=== PATIENT | male | born 1955 | race Caucasian/White ===

== ENCOUNTER 2016-10-25 10:44 | Emergency (ER) ==
[2016-10-25] MEDS ORDERED: ASPIRIN PO STA (10:54)
[2016-10-25 11:10] LABS: MANUAL DIFF NEEDED? NO
--- NOTE | 2016-10-25 11:18 | ED EKG INTERP ---
EKG Interpretation - EKG Time of EKG reading by physician:: 10:45 EKG Read and Signed by:: Joseph Rice EKG Interpretation (*Must complete 3 of following elements*): Normal Rate: 77 Rhythm: normal sinus rhythm Comments: normal ECG Attestation - Scribe Verification/Attestation Scribe:: Irma Pena Acting as Scribe for:: Joseph Rice Scribe documention review:: This chart was documented by a scribe and accurately reflects the service the provider performed and the decisions made by the provider.
--- NOTE | 2016-10-25 11:24 | EKG Report ---
Test Performed on : 10/25/2016 10:45:45 AM Test Reason : CHEST PAIN Blood Pressure : / mmHG Vent. Rate : 077 BPM Atrial Rate : 077 BPM P-R Int : 146 ms QRS Dur : 090 ms QT Int : 346 ms P-R-T Axes : 041 016 028 degrees QTc Int : 391 ms Normal sinus rhythm. Normal ECG No previous ECGs available Unconfirmed Result
[2016-10-25 11:30] LABS: AGAP 8; ALBUMIN 4.3 g/dL (3.5-5.0); ALKALINE PHOSPHATASE 43 U/L (32-122); BUN 16 mg/dL (8-22); CALCIUM 9.3 mg/dL (8.8-10.2); CHLORIDE 103 mmol/L (98-107); CK PROFILE 131 U/L (24-204); COSMO 274; GOT 21 U/L (10-34); GPT 29 U/L (10-44); MAGNESIUM 2.2 mg/dL (1.5-2.7); POTASSIUM 4.3 mmol/L (3.5-5.1); SODIUM 136 mmol/L (136-145); TCO2 25 mmol/L (25-35); TOTAL PROTEIN 6.9 g/dL (6.3-8.3)
[2016-10-25 11:46] LABS: INR 1.05 (0.86-1.15)
[2016-10-25 11:47] LABS: PTT PL 29.2 Seconds (22.6-43.9)
[2016-10-25 11:54] LABS: BASO% 0.6 % (0.0-0.8); EOS# 0.19 X1000 (0.0-0.7); EOS% 3.9 % (0.0-10.0); HEMATOCRIT 52.7 % (42.0-52.0); HEMOGLOBIN 18.1 g/dL (14.0-18.0); IMM GRAN# 0.01 X1000 (0.0-0.04); IMM GRAN% 0.2 % (0.0-0.5); LYMPH# 1.87 X1000 (1.2-3.4); LYMPH% 38.1 % (20.5-51.1); MCH 29.3 PG (27-31); MCHC 34.3 g/dL (33-37); MCV 85.3 FL (81-99); MONO# 0.55 X1000 (0.11-0.59); MONO% 11.2 % (1.7-9.3); MPV 10.8 FL (7.4-10.4); PLT 217 X1000 (130-400); RBC 6.18 XMIL (4.7-6.1)
--- NOTE | 2016-10-25 11:57 | Diag Imaging Result Document ---
PROCEDURE NAME: CHEST-2 VIEWS - 10/25/2016 TWO VIEWS OF THE CHEST: FINDINGS: There are calcified granulomatous nodes in the right hilum and granulomata in the right upper lobe. There is no evidence of acute cardiac or pulmonary disease. There are no previous studies. IMPRESSION: No acute disease.
--- NOTE | 2016-10-25 12:06 | PROVIDER DOCUMENTATION ---
HPI-Chest Pain - General Source: patient, family () - History of Present Illness-CP Location: reports: other (L side) Chest Pain Radiation: reports: no radiation Quality of Pain: reports: pressure Severity in ED: mild Onset/Duration: other (2 months) Timing: still present, intermittent Context/Activities at Onset: reports: light activity Modifying Factors: improves with: nothing Associated Symptoms: reports: denies symptoms Nitro Today/Relief: no nitro taken today Aspirin Treatment Today: 81 mg x 1, provided at home Prior Chest Pain/Cardiac Workup: reports: echocardiography, stress test Similar Symptoms Previously?: Yes Recently Seen Here or By Another Healthcare Provider: No <Irma Pena - Last Filed: 10/25/16 12:01> <Joseph Rice - Last Filed: 10/25/16 12:24> - General Chief Complaint: Chest Pain Stated Complaint: CHEST PAIN Time Seen by Provider: 10/25/16 11:26 Allergies/Adverse Reactions: Patient Allergies Allergy/AdvReac Type Severity Reaction Status Date / Time No Known Allergies Allergy Verified 10/25/16 10:53 Home Medications: Home Medication List Medication Instructions Recorded Confirmed Last Taken Type Esomeprazole [Nexium] 40 mg PO DIRECTED #90 capsule 10/25/16 Unknown Rx - History of Present Illness-CP Nature of Presenting Problem: Pt is 61 y/o M presents to the ED with L side chest pain. Pt states hx of chest pain intermittently since August. Pt states CP started constant Sunday. Pt states CP has lasted 12 hrs to 30 seconds. Pt denies symptoms with CP. Pt denies F and SOB. Pt states he walks daily and the CP does not come with walking. PT states having a tennis lesson and really worked during the lesson and still did not have chest pain. (Irma Pena) Review of Systems - Adult - REVIEW OF SYSTEMS - ADULT Constitutional: denies: chills, fever Eyes: denies: blurred vision, double vision Ears, Nose, Mouth & Throat: denies: ear pain, nose pain, throat pain Cardiovascular: reports: chest pain (L side). denies: heart murmur, irregular heart rate Respiratory: denies: cough, shortness of breath, wheezing Gastrointestinal: denies: abdominal pain, diarrhea, nausea, vomiting Genitourinary: denies: dysuria, hematuria Musculoskeletal: denies: bone pain, joint pain, neck pain Integumentary: denies: hives, itching Neurological: denies: dizziness/vertigo, headache/migraines Psychiatric: reports: no symptoms reported Endocrine: reports: no symptoms reported Hematologic/Lymphatic: reports: no symptoms reported Allergic/Immunologic: reports: no symptoms reported All Other Systems: Reviewed and Negative <Tere Penaomi - Last Filed: 10/25/16 12:01> Past History - Adult - PAST MEDICAL HISTORY-ADULT Review of Records: reports: Nursing Assessment Review, Medications Reviewed, Social history reviewed & non-contributory. Major Childhood Illnesses: reports: denies history Cardiovascular: reports: denies history Respiratory: reports: denies history Gastrointestinal: reports: GERD Obstetrical/Gynecological: reports: denies history Genitourinary: reports: denies history Musculoskeletal: reports: denies history Neurological: reports: denies history Endocrine/Immune: reports: denies history Other Conditions: reports: denies history - PRIOR SURGERIES/PROCEDURES Surgical/Procedure History: reports: tonsillectomy, back/neck (back ) - IMMUNIZATION STATUS Childhood Immunizations: See Nurse Assessment Flu Vaccine: See Nurse Assessment - FAMILY HISTORY Family History: reviewed, not pertinent - SOCIAL HISTORY Smoking: quit greater than 1 year, cigarettes Substance Use: alcohol Alcohol Use Frequency: occasionally Number of drinks per typical drinking period:: 2 drinks Living Situation: family <Tere Penaomi - Last Filed: 10/25/16 12:01> Physical Exam-General - PHYSICAL EXAM-ADULT Initial Vital Signs Reviewed: Yes - CONSTITUTIONAL General Appearance: appears well, alert, no apparent distress - EYES Eyes: PERRL/EOMI, pink conjunctivae, fundi clear, no AV nicking - HEAD, EARS, NOSE, MOUTH & THROAT HENMT: normocephalic/atraumatic, moist mucous membranes, normal ENT inspection, TMs normal, pharynx normal - NECK Neck: non-tender, full range of motion, supple, normal inspection - RESPIRATORY Respiratory: chest non-tender, lungs clear, normal breath sounds, no pleuratic chest pain, no respiratory distress, no accessory muscle use - CARDIOVASCULAR Cardiovascular: normal peripheral pulses, regular rate, rhythm, no edema, no gallop, no JVD, no murmur - GASTROINTESTINAL (ABDOMEN) Abdominal Exam: normal bowel sounds, non tender, soft, no organomegaly, no pulsatile mass - LYMPHATIC Lymphatic: no adenopathy - MUSCULOSKELETAL Back Exam: normal inspection, no CVA tenderness, no vertebral tenderness Extremity: normal range of motion, non-tender, normal gait, normal inspection, no pedal edema, no calf tenderness, normal capillary refill - SKIN Integumentary: normal color, normal turgor, warm/dry - NEUROLOGIC Neurologic: grossly normal - PSYCHIATRIC Psych/Mental Status: normal mood/affect, oriented x 3 <Irma Pena - Last Filed: 10/25/16 12:01> Progress - XRAY 1 XRAY: Bilateral XRAY Study: Chest Impression: Normal XRAY Interpretation: no acute disease <Irma Pena - Last Filed: 10/25/16 12:01> <Joseph Rice - Last Filed: 10/25/16 12:24> - PLAN OF CARE/RESULTS Progress/Plan/Lab Results: Laboratory Tests 10/25/16 10/25/16 10/25/16 11:00 11:00 11:00 WBC RBC Hgb Hct MCV MCH MCHC RDW Std Deviation Plt Count MPV Immature Gran % (Auto) Neut % (Auto) Lymph % (Auto) [place] % (Auto) Eos % (Auto) Baso % (Auto) Immature Gran # (Auto) Neut # (Auto) Lymph # (Auto) [place] # (Auto) Eos # (Auto) Baso # (Auto) PT INR APTT (Factor Assay) D-Dimer Sodium 136 Potassium 4.3 Chloride 103 Carbon Dioxide 25 Anion Gap 8 BUN 16 Creatinine 1.2 Estimated GFR/1.73 m2 > 60 BUN/Creatinine Ratio 13 Glucose 115 H Calculated Osmolality 274 Calcium 9.3 Magnesium 2.2 Total Bilirubin 0.80 AST 21 ALT 29 Alkaline Phosphatase 43 Creatine Kinase 131 Troponin T < 0.010 Tps-N-Xmfmuiprhnz Pept 13 Total Protein 6.9 Albumin 4.3 Globulin 3.0 Albumin/Globulin Ratio 2.0 10/25/16 10/25/16 11:00 11:00 WBC 4.91 RBC 6.18 H Hgb 18.1 H Hct 52.7 H MCV 85.3 MCH 29.3 MCHC 34.3 RDW Std Deviation 14.0 Plt Count 217 MPV 10.8 H Immature Gran % (Auto) 0.2 Neut % (Auto) 46.0 Lymph % (Auto) 38.1 [place] % (Auto) 11.2 H Eos % (Auto) 3.9 Baso % (Auto) 0.6 Immature Gran # (Auto) 0.01 Neut # (Auto) 2.26 Lymph # (Auto) 1.87 [place] # (Auto) 0.55 Eos # (Auto) 0.19 Baso # (Auto) 0.03 PT 14.0 INR 1.05 APTT (Factor Assay) 29.2 D-Dimer < 0.22 L Sodium Potassium Chloride Carbon Dioxide Anion Gap BUN Creatinine Estimated GFR/1.73 m2 BUN/Creatinine Ratio Glucose Calculated Osmolality Calcium Magnesium Total Bilirubin AST ALT Alkaline Phosphatase Creatine Kinase Troponin T Bbe-P-Lvgckxersar Pept Total Protein Albumin Globulin Albumin/Globulin Ratio Orders Category Date Time Status Cardiac Monitoring DIRECTED Care 10/25/16 10:54 Active Oxygen Therapy- ED Nursing DIRECTED Care 10/25/16 10:54 Active Saline Loc NOW Care 10/25/16 10:54 Active CHEST-2 VIEWS [RAD] Stat Exams 10/25/16 10:54 Draft CBC WITH ELECTRONIC DIFF [HEME] Stat Lab 10/25/16 11:00 Completed CK PROFILE [SP CHEM] Stat Lab 10/25/16 11:00 Completed COMPREHENSIVE METABOLIC PANEL [CHEM] Stat Lab 10/25/16 11:[address] D-DIMER [address] [COAG] Stat Lab 10/25/16 11:00 Completed MAGNESIUM [CHEM] Stat Lab 10/25/16 11:00 Completed PRO B-NATRIURETIC PEPTIDE Stat Lab 10/25/16 11:00 Com[address]IME WITH INR PL [COAG] Stat Lab 10/25/16 11:[address] [COAG] Stat Lab 10/25/16 11:00 Completed TROPONIN T Stat Lab 10/25/16 11:00 Completed Aspirin Med 10/25/16 10:54 Discontinued 325 mg PO STAT STA EKG [EKG] Stat Ther 10/25/16 10:54 Draft Vital Signs - 24 hr 10/25/16 10/25/16 10:46 11:50 Pulse Rate 73 62 Respiratory 18 18 Rate Blood Pressure 151/93 162/101 O2 Sat by Pulse 95 97 Oximetry (Irma Pena) He describes several brisk walks, as well as a tennis lesson that was so strenuous that he soaked his hat, yet had no CP, no SOB., so he has given himself several stress tests. He and describe some similar CP sev years ago that was tx successfully with Nexium. He denies any unusual taste in back of mouth. Also denies any increase in pain when supine. (Joseph Rice) Departure <Irma Pena - Last Filed: 10/25/16 12:01> - Departure Time of Disposition Order: 12:21 Certified Medical Emergency: Emergent <Joseph Rice - Last Filed: 10/25/16 12:24> - Departure DIAGNOSIS: GERD (gastroesophageal reflux disease) Qualifiers: Esophagitis presence: esophagitis presence not specified Qualified Code(s): K21.9 - Gastro-esophageal reflux disease without esophagitis Disposition: HOME 01 Condition: Good Additional Instructions: ED Follow Up Instructions: You have been treated by a care provider in the Emergency Department. These instructions are being provided to you so you can have an understanding of how to care for yourself upon discharge. Upon discharge from the Emergency Department, you are responsible for making arrangements for follow-up care by a physician of your choice. Take all prescribed medications as directed. Return to the Emergency Department immediately for any new or worsening symptoms. You may call the Physician Referral phone number at [phone] to obtain a list of Physicians who are taking new patients. Prescriptions: Esomeprazole [Nexium] 40 mg PO DIRECTED #90 capsule Referrals: Satinder Sheridan MD [Primary Care Provider] - Instructions: Gastroesophageal Reflux Disease, Adult, [id number] Attestation - Scribe Verification/Attestation Scribe:: Irma Pena Acting as Scribe for:: Joseph Rice Scribe documention review:: This chart was documented by a scribe and accurately reflects the service the provider performed and the decisions made by the provider. <Irma Pena - Last Filed: 10/25/16 12:01> Physician Attestation
[2016-10-25 12:21] VITALS: BP 135/91
== END 2016-10-25 12:37 | disposition home or self-care (01) ==
LOC: P.ED 10:44
DX: K21.9 Gastro-esophageal reflux disease without esophagitis (principal); R07.89 Other chest pain; Z87.891 Personal history of nicotine dependence
CPT/HCPCS: 71020; 80053; 82550; 83735; 83880; 84484; 85025; 85379; 85610; 85730; 93005